=== PATIENT | female | born 1955 | race Caucasian/White ===

== ENCOUNTER 2016-10-29 17:16 | Emergency (ER) | payer BC, OTHER ==
[2016-10-29 17:40] VITALS: BP 180/87
--- NOTE | 2016-10-29 19:02 | UC ---
Throat Pain/Nasal Kenan HPI - HPI Summary HPI Summary: complaint of wheezing , cough and sinus pressure just completed treatment for sinusitis with doxycyline and zithromax without relief In the last 2 days she has increasing sinus pressure and headaches cough has worsenend and is productive has been wheezing and coughing frequently denies fever and chills using saline rinse 2x day called her ENT and was told to come to urgent care surgery scheduled for the 11/06/16 hx of multiple sinus infection in the last year - History of Current Complaint Chief Complaint: UCRespiratory Stated Complaint: WHEEZING,COUGHING,SINUS Time Seen by Provider: 10/29/16 18:55 Hx Obtained From: Patient - Allergies/Home Medications Allergies/Adverse Reactions: Allergies Allergy/AdvReac Type Severity Reaction Status Date / Time Levofloxacin [From Levaquin] Allergy tendon Verified 10/29/16 17:23 injury Penicillins [PCN] Allergy Rash Verified 10/29/16 17:23 PMH/Surg Hx/FS Hx/Imm Hx Previously Healthy: Yes Cardiovascular History: Hypertension Respiratory History: Asthma - Surgical History Surgical History: Yes Surgery Procedure, Year, and Place: t/a,[place]am[place],miscarriage c/sec - Family History Known Family History: Negative: Cardiac Disease, Hypertension, Diabetes - Social History Occupation: Employed Full-time Lives: With Family Alcohol Use: Rare Substance Use Type: None Smoking Status (MU): Never Smoked Tobacco Review of Systems Constitutional: Negative Skin: Negative Eyes: Negative ENT: Nasal Discharge Respiratory: Cough Cardiovascular: Negative Gastrointestinal: Negative Genitourinary: Negative Motor: Negative Neurovascular: Negative Musculoskeletal: Negative Neurological: Headache Psychological: Negative All Other Systems Reviewed And Are Negative: Yes Physical Exam Triage Information Reviewed: Yes Appearance: No Pain Distress, Well-Nourished Vital Signs: Initial Vital Signs Temp 98.1 F 10/29/16 17:25 Pulse 90 10/29/16 17:25 Resp 20 10/29/16 17:25 BP 180/87 10/29/16 17:25 Pulse Ox 99 10/29/16 17:25 Vital Signs Reviewed: Yes Eyes: Positive: Conjunctiva Clear ENT: Positive: Pharyngeal erythema, Nasal congestion, Nasal drainage, TMs normal Neck: Positive: No Lymphadenopathy Respiratory: Positive: Decreased breath sounds, Wheezing - throughout Cardiovascular: Positive: RRR, No Murmur, Pulses Normal, Brisk Capillary Refill Abdomen Description: Positive: Nontender, Soft Bowel Sounds: Positive: Present Musculoskeletal: Positive: No Edema Neurological: Positive: Alert Psychological Exam: Normal Skin Exam: Normal Re-Evaluation - Re-Evaluation First Eval Re-Evaluation Time: 19:50 Change: Improved Comment: less wheezing throughout all lung elliott Throat Pain/Nasal Course/Dx - Course Course Of Treatment: exam completed. presents with asthma excerbation , currently has sinus infection and failed to improve after 1 course of doxycycline and zithromax, duoneb treatment given with good results less wheezing throughout all lung fileds, will rx for clarithromycin and albuterol pt refuses prednisone at this time. discusseds/s of when to seek medical care - Differential Dx/Diagnosis Differential Diagnosis/HQI/PQRI: Sinusitis, Other - asthma excerbation Provider Diagnoses: sinusitis, asthma exacerbation, elevated blood pressure Discharge - Discharge Plan Condition: Stable Disposition: HOME Prescriptions: Albuterol HFA INHALER* [Ventolin HFA Inhaler*] 2 puff INH Q4H PRN #1 mdi PRN Reason: Wheezing Clarithromycin TAB* [Biaxin 500 MG TAB*] 500 mg PO BID #20 tab Patient Education Materials: Asthma (ED), Sinusitis (ED) Referrals: No Primary Care Phys,NOPCP [Primary Care Provider] - [facility] [Outside] Additional Instructions: Please take antibiotic as directed Use your albuterol inhaler every 4-6 hours when needed for wheezing, shortness of breath or uncontrolled coughing. Increase fluids and rest Take acetaminophen or ibuprofen for fever or pain Please review your discharge instructions. If your symptoms do not improve please call your primary care provider or return to urgent care. Your blood pressure is elevated. Please contact your primary care provider within 1 -4 weeks for further evaluation
[2016-10-29] MEDS ORDERED: Albuterol/Ipratropium NEB.SOL* Albuterol 2.5 MG/Ipratropium 0.5 MG 3 ML INH ONE (19:07)
== END 2016-10-29 20:02 | disposition home or self-care (01) ==
LOC: UCEAST 17:16
DX: J45.901 Unspecified asthma with (acute) exacerbation (principal); J32.9 Chronic sinusitis, unspecified; Z88.0 Allergy status to penicillin; I10 Essential (primary) hypertension
CPT/HCPCS: 99202; A9270-GY; G0463